=== PATIENT | male | born 1940 | race Caucasian/White ===

== ENCOUNTER → 2023-11-25 15:51 | Outpatient (REF) | payer BC, SELFPAY | LOC: HWRAD 15:51 | PROVIDERS: ATTENDING PHYSICIAN Family Medicine | DX: K58.9 Irritable bowel syndrome, unspecified (principal); F03.918 Unspecified dementia, unspecified severity, with other behavioral disturbance; R47.01 Aphasia | CPT/HCPCS: 70450 ==

== ENCOUNTER 2024-10-10 11:33 | Emergency (ER) | payer BC, SELFPAY ==
[2024-10-10 11:39] VITALS: BP 128/73
[2024-10-10] MEDS: TYLENOL 1000 MG PO (11:46)
[2024-10-10 12:15] LABS: % Basophils 0.3 % (0-2); % Immature Granulocytes 0.3 % (0-0.5); % Lymphocytes 5.2 % (20.5-51.1); % Monocytes 9.4 % (1.7-9.3); % Neutrophils 84.8 % (42.2-75.2); Absolute Lymphocytes 0.4 10^3/uL (1.2-3.4); Absolute Monocytes 0.7 10^3/uL (0.1-0.6); Absolute Neutrophils 5.9 10^3/uL (1.4-6.5); Hematocrit 38.2 % (39.0-52.0); Hemoglobin 13.1 g/dL (13.0-18.0); Mean Corp Hgb Conc. 34.3 g/dL (33.0-37.0); Mean Corpuscular Hgb 31.6 pg (27.0-31.0); Mean Platelet Volume 9.3 fL (7.4-10.4); Nucleated Red Blood Cells % 0 % (-); Platelet Count 182 10^3/uL (130-400); Red Blood Cell Count 4.15 10^6/uL (4.70-6.10); Red Cell Dist. Width 12.7 % (11.5-14.5)
[2024-10-10 12:24] LABS: COVID-19 Antigen Positive (Negative)
[2024-10-10 12:32] LABS: ALT (SGPT) 33 U/L (0-50); AST (SGOT) 43 U/L (17-59); Albumin 4.2 g/dl (3.5-5.0); Alkaline Phosphatase 73 U/L (38-126); Blood Urea Nitrogen 19 mg/dl (9-20); Calcium 8.8 mg/dl (8.4-10.2); Carbon Dioxide 26 mmol/L (22-30); Chloride 100 mmol/L (98-107); Glucose 117 mg/dl (70-99); Potassium 4.3 mmol/L (3.5-5.1); Sodium 133 mmol/L (135-145); Total Bilirubin 0.6 mg/dl (0.2-1.3); Total Protein 7.1 g/dl (6.3-8.2); eGFR > 60.00
[2024-10-10 14:10] VITALS: BP 98/77
--- NOTE | 2024-10-10 14:17 | ED.GENMED ---
History of Present Illness
General
Chief Complaint: Change in Mental Status
Source: patient and family
Exam Limitations: none
Time Seen by Provider: 10/10/24 14:04
Nursing documentation reviewed up to this point in time: agreed with
History of Present Illness
History of Present Illness:
Patient is an 84 yr old male brought to the ER by daughter for evaluation. Daughter reports patient does have a history of some mild expressive aphasia however patient seemed confused today. She did see patient last night patient was complaining
of feeling chills. She does report patient does live alone however does function very well on his own. She and other family numbers to cook for him.
Patient is awake alert. He has no complaints.
Pt had mild cough yesterday as per daughter.
Daughter reports since patient received Tylenol in triage she is much better. She reports his mental status is baseline.
Review of Systems
Review of Systems
Allergies reviewed?: Yes
Other source history: family
All Other Systems: ROS reviewed and negative except as documented in HPI and ROS
Constitutional: Reports chills
Respiratory: Reports cough; Denies trouble breathing
Cardiac: Reports no symptoms
ABD/GI: Reports no symptoms; Denies nausea or vomiting
: Reports no symptoms
Musculoskeletal: Reports no symptoms
Skin: Reports no symptoms
Endocrine: Reports no symptoms
Psychiatric: Reports no symptoms
Phy Exam
General Physical Exam
General Presentation: no apparent distress
General age: appears stated age
General Skin: warm and dry
General Habitus: elderly
General Hydration: appears well hydrated
Cardiovascular Exam
Cardiovascular Exam: regular rate/rhythm, no murmur and normal peripheral pulses
Pulmonary Exam
Pulmonary Exam: lungs clear and no respiratory distress
Neurological Exam
Neurological Exam: alert and oriented x3
Musculoskeletal Exam
Musculoskeletal Exam: full ROM
Skin Exam
Skin Exam: normal color and warm/dry
Psychiatric Exam
Psychiatric Exam: normal mood/affect
Sepsis
Sepsis Screening
Sepsis Assessment: Sepsis Ruled Out
Sepsis Screen
Sepsis Screen: Sepsis Ruled Out
Date: 10/10/24
Time: 14:46
Course
Orders/Labs/Results
Orders:
Orders
10/10/24 11:44
Acetaminophen [Tylenol] 1,000 mg .ROUTE .STK-MED ONE
10/10/24 11:46
Acetaminophen [Tylenol] 1,000 mg PO NOW STA
10/10/24 12:04
COVID-19 Antigen Urgent
Source: Nasal Swab
Complete Blood Count/With Diff Urgent
Comprehensive Metabolic Panel Urgent
INF RAPID [Influenza A+B Rapid Molecular] Urgent
MATTEO Source: Nasal Swab
Specimen Description:
Abnormal Lab Results
10/10/24
12:04
RBC 4.15 L 10^6/uL
(4.70-6.10)
Hct 38.2 L %
(39.0-52.0)
MCH 31.6 H pg
(27.0-31.0)
Absolute Lymphs (auto) 0.4 L 10^3/uL
(1.2-3.4)
Absolute Monos (auto) 0.7 H 10^3/uL
(0.1-0.6)
Neutrophils % 84.8 H %
(42.2-75.2)
Lymphocytes % 5.2 L %
(20.5-51.1)
Monocytes % 9.4 H %
(1.7-9.3)
Sodium 133 L mmol/L
(135-145)
Glucose 117 H mg/dl
(70-99)
SARS-CoV-2 Antigen Positive A
(Negative)
10/10/24 12:04
10/10/24 12:04
Vital Signs
Initial and Last Documented VS:
Initial Vital Signs
Temp Pulse Resp BP Pulse Ox
102.0 F H 94 18 128/73 97
10/10/24 11:39 10/10/24 11:39 10/10/24 11:39 10/10/24 11:39 10/10/24 11:39
Last Documented Vital Signs
Temp Pulse Resp BP Pulse Ox
98.3 F 87 18 98/77 98
10/10/24 14:40 10/10/24 14:10 10/10/24 14:10 10/10/24 14:10 10/10/24 14:10
MDM/Problems Addressed
Differential Diagnosis Includes:
Not limited to viral syndrome, influenza, COVID
MDM/Problems Addressed:
Patient was found to be COVID-positive here in the ER. He is very nontoxic-appearing awake alert acute distress he did present febrile with a temp of 102 however after Tylenol his temp decreased. He has no complaints. He denies any shortness of
breath. His lungs are clear he is not hypoxic. He is well enough to go home and does want a go home. He was able to ambulate back and forth in the room. He lives alone however her daughter lives very close to him and does bring in his meals and
reports that she will be checking on him. Encourage fluids Tylenol Motrin as needed.
*Pulse Oximetry
Patient hypoxic: no
*Critical Care Note
Total Time (30-74mins, 75-104mins- exclusive of procedures): Not Applicable
ED Attending Note
-
Portions of this chart may have been created with voice recognition software.� Occasional wrong word or��sound alike� substitutions may have occurred due to the inherent limitations of voice recognition software.
Discharge Plan
Departure
Patient Disposition: Home (Routine Discharge)
Date of Disposition: 10/10/24
Time of Disposition: 14:40
Patient with high blood pressure during this ER visit?: No
Condition: Fair
Covid-19: Confirmed COVID-19
Discharge Problem:
COVID-19
Instructions: COVID-19 - ED discharge instructions
Referrals:
Hayes Barajas MD [Family Provider] -
Activity Restrictions/Additional Instructions:
As discussed stay well-hydrated. You may alternate between Tylenol and ibuprofen for fever chills and bodyaches.
Tylenol(acetaminophen) 650 mg orally every 4-6 hours
Ibuprofen: 400 mg every 8 hours with food. Follow-up with family doctor in the next several days .
return if any worsening of symptoms including creasing weakness worsening fevers shortness of breath or any further concerns.
Interventions
Interventions:
*Risk Screen - Suicide Last Done: 10/10/24 11:39
*General Assessment Last Done: 10/10/24 11:39
*Neglect/Abuse Screening Last Done: 10/10/24 11:39
*ED COVID-19 Vaccine History Last Done: 10/10/24 11:39
Discharge Date and Time
Print Language: [id number]
== END 2024-10-10 14:54 | disposition home or self-care (01) ==
LOC: EMR 11:33
PROVIDERS: Emergency Medicine; EMERGENCY PHYSICIAN Emergency Medicine; FAMILY PHYSICIAN Family Medicine
DX: U07.1 COVID-19 (principal); R41.0 Disorientation, unspecified; Z11.52 Encounter for screening for COVID-19; R47.01 Aphasia
CPT/HCPCS: 99283; 80053; 85025; 87502; 87811